=== PATIENT | female | born 1975 | race Caucasian/White ===

== ENCOUNTER 2018-02-06 15:21 | Emergency (ER) | payer MEDICAID ==
[~2018-02-06] VITALS: Ht 165.1 cm; Wt 68.2 kg
[2018-02-06 16:49] VITALS: BP 127/79
[2018-02-06] MEDS ORDERED: KETOROLAC TROMETHAMINE 10 MG TABLET PO ONE (17:30)
[2018-02-06] MEDS ORDERED: DIAZEPAM 5 MG TABLET PO ONE (17:30)
== END 2018-02-06 18:13 | disposition home or self-care (01) ==
LOC: EMS 15:22
DX: M62.838 Other muscle spasm (principal); R07.89 Other chest pain; F41.9 Anxiety disorder, unspecified
CPT/HCPCS: 93005; 99283

== ENCOUNTER 2019-09-19 08:44 | Emergency (ER) | payer SELFPAY ==
[~2019-09-19] VITALS: Ht 160 cm; Wt 77.3 kg
[2019-09-19] MEDS ORDERED: IBUPROFEN 400 MG TABLET PO ONE (10:00)
[2019-09-19] MEDS ORDERED: ACETAMINOPHEN 325 MG TABLET PO ONE (10:00)
[2019-09-19 12:03] VITALS: BP 123/72
== END 2019-09-19 12:14 | disposition home or self-care (01) ==
LOC: EMS 08:44
DX: M79.662 Pain in left lower leg (principal)
CPT/HCPCS: 93971

== ENCOUNTER 2020-12-29 21:20 | Emergency (ER) | payer MEDICAID ==
[~2020-12-29] VITALS: Ht 160 cm; Wt 75.0 kg
[2020-12-29 21:29] VITALS: BP 107/72
== END 2020-12-29 23:49 | disposition left against medical advice (07) ==
LOC: EMS 21:22
DX: R07.9 Chest pain, unspecified (principal); Z53.21 Procedure and treatment not carried out due to patient leaving prior to being seen by health care provider
CPT/HCPCS: 93005